=== PATIENT | female | born 1960 | race Caucasian/White ===

== ENCOUNTER 2022-11-28 09:44 | Outpatient (OUT) | payer BC, SELFPAY ==
--- NOTE | 2022-11-28 10:10 | MM_ITS ---
Patient: AFSHIN LOPES Exam Date: 11/28/2022 : 1960 Gender:F Ordering : DR INGRID DELGADO Admission #: [id number] Family : Order #: [id number] CLICK HERE TO VIEW EXAM RADIOLOGY REPORT PROCEDURE: MM TOMOSYNTHESIS SCREENING BI COMPARISON: MG MAMM SCREEN 3D OMA CAD, 11/23/2021. MG MAMM SCREEN 3D OMA CAD, 11/21/2020. MG MAMM SCREEN OMA W CAD, 04/30/2018. MG MAMM OMA SCRN W CAD DIG, 03/23/2015. INDICATIONS: Screeing Calculator Name NCI Breast Cancer Risk Assessment Tool 5 Year Breast Cancer Risk 1.30% Lifetime Breast Cancer Risk 6.40% Personal Breast Cancer No Personal Ovarian Cancer No Treatments None Family Cancers Father with colon cancer at age 80. LOCATION: [facility] [place] BREAST COMPOSITION: Heterogeneously dense,which may obscure small masses. FINDINGS: DIAGNOSTIC CATEGORY 2--BENIGN FINDING: RIGHT BREAST: No significant suspicious finding. No significant change has occurred. LEFT BREAST: No significant suspicious finding. Stable asymmetries within upper breast. No significant change has occurred. RECOMMENDATIONS: ROUTINE MAMMOGRAM AND CLINICAL EVALUATION IN 12 MONTHS. PLEASE NOTE: A NORMAL MAMMOGRAM DOES NOT EXCLUDE THE POSSIBILITY OF BREAST CANCER. A CLINICALLY SUSPICIOUS PALPABLE LUMP SHOULD BE BIOPSIED. Dictated by: Brian Rangel M.D. on 11/28/2022 at 14:40 Approved by: Brian Rangel M.D. on 11/28/2022 at 14:43
== END 2022-11-28 09:45 | disposition home or self-care (01) ==
PROVIDERS: PCP Internal Medicine; Visit Provider Internal Medicine
DX: Z12.31 Encounter for screening mammogram for malignant neoplasm of breast (principal)
CPT/HCPCS: 77063; 77067